=== PATIENT | female | born 1985 | race Two or more races ===

== ENCOUNTER → 2023-10-21 | Day surgery (SDC) | payer OTHER ==
[2023-10-16 14:38] LABS: Basophils # (auto) 0.1 10 ^3/uL (0-0.2); Eosinophils # (auto) 0.1 10 ^3/uL (0-0.8); Eosinophils % (auto) 1.3 % (0.0-7.0); Hematocrit 40.7 % (36.0-46.0); Hemoglobin 13.6 g/dL (12.2-16.2); Lymphocytes # (auto) 2.7 10 ^3/uL (0.4-5.4); Mean Corpuscular Hemoglobin 28.9 pg (28.0-32.0); Mean Corpuscular Hgb Conc. 33.4 g/dL (32.0-36.0); Mean Corpuscular Volume 86.5 fL (80.0-100.0); Monocytes # (auto) 0.5 10 ^3/uL (0-1.3); Monocytes % (auto) 4.8 % (0.0-12.0); Neutrophils # (auto) 6.8 10 ^3/uL (1.6-8.6); Neutrophils % (auto) 66.9 % (37.0-80.0); White Blood Cell 10.2 10^3/uL (4.4-10.8)
[2023-10-16 14:53] LABS: INR 1.07 (0.9-1.15); Prothrombin Time 11.3 sec (9.3-11.8)
[2023-10-16 15:22] LABS: Alanine Aminotransferase 27 U/L (7-40); Albumin 4.4 g/dL (3.2-4.8); Alkaline Phosphatase 99 U/L (46-116); Aspartate Aminotransferase 14 U/L (13-40); Calcium 9.5 mg/dL (8.7-10.4); Glucose 131 mg/dL (74-106); Total Protein 7.6 g/dL (5.7-8.2)
[2023-10-16 15:29] LABS: BUN/Creatinine Ratio 7.1 (10.0-20.0); Blood Urea Nitrogen < 5 mg/dL (9-23)
[2023-10-16 15:34] LABS: Chloride 106 mmol/L (98-107); Potassium 3.4 mmol/L (3.5-5.1); Sodium 138 mmol/L (136-145)
[2023-10-16 15:35] LABS: Anion Gap 5 (5-15); Carbon Dioxide 27 mmol/L (20-30)
[~2023-10-21] VITALS: Ht 170.2 cm; Wt 77.6 kg
[~2023-10-21] MED LIST: SODIUM CHLORIDE LOCK 10 ML ONE
[2023-10-21] MEDS: LIDOCAINE VISCOUS 2% 15ML UD ONE (10:40)
[2023-10-21] MEDS: MIDAZOLAM HCL 5 MG/ML-1ML VIAL ONE (10:41)
[2023-10-21] MEDS: diphenhdrAMINE HCL 50 MG/1 ML VL ONE (10:41)
[2023-10-21] MEDS: fentaNYL CITRATE 100 MCG/2 ML VL ONE (10:41)
[2023-10-21 10:54] VITALS: PULSE 90; RESP 17; TEMP 97.8; O2SAT 100
[2023-10-21 11:20] VITALS: BP 114/81; PULSE 74; RESP 16; O2SAT 98
== END | disposition home or self-care (01) ==
LOC: GI 09:25
PROVIDERS: ATTEND Internal Medicine Gastroenterology
DX: R10.13 Epigastric pain (principal); K44.9 Diaphragmatic hernia without obstruction or gangrene; K21.9 Gastro-esophageal reflux disease without esophagitis; K29.50 Unspecified chronic gastritis without bleeding; Z88.1 Allergy status to other antibiotic agents; Z88.8 Allergy status to other drugs, medicaments and biological substances; Z79.899 Other long term (current) drug therapy; Z98.890 Other specified postprocedural states
CPT/HCPCS: 36415; 43239; 80053; 84702; 85025; 85610; 85730; 88305; 88312; 88342; J1200; J2250; J3010